=== PATIENT | female | born 1965 | race Caucasian/White ===

== ENCOUNTER 2018-10-18 06:54 | Emergency (ER) | payer OTHER ==
[~2018-10-18] VITALS: Ht 154.9 cm; Wt 73.5 kg
[~2018-10-18 06:54] MED LIST: BASAGLAR K100 UNIT/1 SQ; HUMALOG100 UNIT/1; LAC PO; LEVAQUIN750 MG PO; LOSARTAN POTASS50 M1 GT; METOPROLOL SUCC50 M2; SIMVASTATIN20 M1 PO; ZOLOFT25 MG; ZOLOFT50 MG PO
[2018-10-18 07:20] VITALS: Ht 154.9 cm; Wt 73.5 kg
[2018-10-18 07:41] LABS: BASOPHIL % 1.9 % (0-2); PLATELET COUNT 224 x10^3mcL (130-400); RED CELL DISTRIBUTION WIDTH 14.4 % (11.5-14.5)
[2018-10-18 08:06] LABS: CALCIUM 9.8 mg/dL (8.5-10.1); CARBON DIOXIDE 28.7 mmol/L (21-32); CREATININE SERUM 2.3 mg/dL (0.6-1.0); POTASSIUM SERUM 3.3 mmol/L (3.5-5.1)
[2018-10-18 08:10] LABS: BILIRUBIN TOTAL 0.62 mg/dL (0.20-1.00)
[2018-10-18 08:11] LABS: TOTAL PROTEIN, SERUM 8.3 g/dL (6.4-8.2)
[2018-10-18 11:10] LABS: CALCIUM 8.6 mg/dL (8.5-10.1); CARBON DIOXIDE 30.7 mmol/L (21-32); CREATININE SERUM 1.9 mg/dL (0.6-1.0); POTASSIUM SERUM 4.1 mmol/L (3.5-5.1)
[2018-10-18 11:43] VITALS: BP 111/67
== END 2018-10-18 11:55 | disposition home or self-care (01) ==
LOC: ED 06:54
PROVIDERS: Emergency Medicine
DX: N17.9 Acute kidney failure, unspecified (principal); R11.2 Nausea with vomiting, unspecified; E86.0 Dehydration; I95.1 Orthostatic hypotension; E10.9 Type 1 diabetes mellitus without complications; Z88.2 Allergy status to sulfonamides; Z88.8 Allergy status to other drugs, medicaments and biological substances
CPT/HCPCS: J7030; J8597; Q0163